=== PATIENT | female | born 2000 | race Caucasian/White ===

== ENCOUNTER 2019-02-05 11:15 | Emergency (ER) | payer OTHER ==
[~2019-02-05] VITALS: Ht 157.5 cm; Wt 99.0 kg
[~2019-02-05 11:15] MED LIST: ALEVE220 M1 PO; AMOXICILLIN500 MG PO; BACTROBAN2 % EX; CEPHALEXIN500 MG OR; IBUPROFEN600 MG PO; NO MEDS; PRE-NATAL PO; TYLENOL325 MG PO
[2019-02-05 12:09] VITALS: BP 124/83
== END 2019-02-05 12:17 | disposition home or self-care (01) | DRG 605 ==
LOC: ED 11:15
PROC: 0HQFXZZ Repair Right Hand Skin, External Approach (ICD-10-PCS; principal; 2019-02-05)
DX: S61.212A Laceration without foreign body of right middle finger without damage to nail, initial encounter (principal); W26.8XXA Contact with other sharp object(s), not elsewhere classified, initial encounter; Y92.89 Other specified places as the place of occurrence of the external cause; Y99.0 Civilian activity done for income or pay

== ENCOUNTER 2024-08-01 21:06 | Emergency (ER) | payer SELFPAY ==
[~2024-08-01] VITALS: Ht 157.5 cm; Wt 77.0 kg
[2024-08-01 22:00] VITALS: BP 134/95
[2024-08-01] MEDS ORDERED: Diph, Acellular Pertussis, Tet 0.5 ML/VIAL (Tdap) SDV IM ONE (22:05)
[2024-08-01 22:31] VITALS: BP 131/90
[2024-08-01 22:46] VITALS: BP 117/83
[2024-08-01 23:00] VITALS: BP 117/83
== END 2024-08-01 23:00 | disposition home or self-care (01) | DRG 605 ==
LOC: ED 21:06
DX: S61.411A Laceration without foreign body of right hand, initial encounter (principal); W25.XXXA Contact with sharp glass, initial encounter; Y99.0 Civilian activity done for income or pay